=== PATIENT | male | born 1960 | race Caucasian/White ===

== ENCOUNTER 2021-08-30 13:22 | Inpatient (IN) ==
--- NOTE | 2021-08-30 13:52 | Emergency Department Note ---
History of Present Illness General Chief complaint: Fever Stated complaint: sob, fever, dizzy Time Seen by Provider: 08/30/21 13:38 Source: patient History of Present Illness Provider complaint: Shortness of breath Onset (ago): day(s) 5 Location: chest Pain Consistency: + intermittent Quality: + other (Wheezing) Exacerbated By: + other (Exertion) Associated symptoms: + cough, + fever/chills, + malaise and + shortness of breath; no chest pain, no headaches or no nausea/vomiting This is a 61-year-old male with a history of COPD presenting with flulike symptoms for the past 5 days with shortness of breath. The patient states that he had a gathering for [employer] and his became ill with flulike symptoms. She tested negative for COVID-19. The patient is vaccinated and has received a booster for COVID-19. He did develop symptoms 5 days ago including a productive cough with white sputum, body aches and chills. He is also short of breath which is worse when he tries to walk short distances. He was at his primary care provider's office today and was noted to have a O2 saturation of 82% on room air. He was sent here for further evaluation. He is not oxygen dependent at home. He does take a small dose of prednisone daily. He denies any chest discomfort or pain, fever, abdominal pain, vomiting, diarrhea, leg swelling or pain or urinary symptoms. Home Medications Medication Instructions Recorded Confirmed Type allopurinol 300 mg tablet 450 mg PO DAILY 08/30/21 08/30/21 History atorvastatin 40 mg tablet 40 mg PO DAILY 08/30/21 08/30/21 History prednisone 10 mg tablet 10 mg PO DAILY 08/30/21 08/30/21 History Allergies Allergy/AdvReac Type Severity Reaction Status Date / Time No Known Allergies Allergy Verified 08/30/21 14:22 Past Med/Surg History Medical History No pertinent family history No pertinent past medical history Surgical History No pertinent past surgical history Social History Smoking Status: Never smoker Tobacco Type: Smokeless Tobacco (Dip or Chew) Feels Safe at Home: Yes Review of Systems See HPI for pertinent positives & negatives. and A total of 10 systems reviewed and were otherwise negative Physical Exam Vital Signs Vital Signs - 24 hr 08/30/21 13:25 08/30/21 13:46 Temperature 36.7 C Temperature Source Temporal Artery Scan Pulse Rate 102 H Pulse Rate [Left Apical] 103 H Pulse Rhythm [Left Apical] Regular Pulse Strength [Left Apical] Normal Respiratory Rate 22 22 Respiratory Effort / Characteristics Non-Labored Spontaneous Non-Labored Spontaneous Respiratory Depth Normal Normal Respiratory Pattern Regular Blood Pressure 150/84 H Blood Pressure [Left Arm] 124/90 Blood Pressure Mean 106 Blood Pressure Mean [Left Arm] 101 Blood Pressure Position [Left Arm] Lying Pulse Oximetry 82 L 95 Oxygen Delivery Method Room Air Nasal Cannula Oxygen Flow Rate 2 Sepsis Recent Fever Within 48 Hours No Sepsis New/Unexplained Change in Mental Status No Sepsis Action Taken by Nursing No Action Required Constitutional: Vital signs reviewed. Hypoxemic. Eyes: Pupils are equal round reactive to light. Conjunctiva are noninjected. ENT: Pharynx is clear without erythema or exudate. Mucous membranes are moist. Neck supple without meningeal signs. Respiratory: Diffuse expiratory wheezing bilaterally. Breath sounds are equal bilaterally. Cardiovascular: Tachycardic. Regular rhythm. GI: Soft, nondistended and nontender. Bowel sounds are present. Musculoskeletal: No peripheral edema. No lower extremity tenderness. Integumentary: No cyanosis. or jaundice. Neurological: The patient is awake and alert. No focal deficits. Psychiatric: Normal affect. Not anxious appearing. Course Administered Medications Discontinued Medications Albuterol (Albut/Ipratrop 3mg/0.5mg Neb 3 Ml Vial) 3 ml NEB NOW STA; Protocol Stop: 08/30/21 14:00 Last Admin: 08/30/21 14:31 Dose: 3 ml Documented by: [id number] Albuterol (Albut/Ipratrop 3mg/0.5mg Neb 3 Ml Vial) 12 ml NEB ONE ONE; Protocol Stop: 08/30/21 17:01 Last Admin: 08/30/21 17:08 Dose: 12 ml Documented by: [id number] Ioversol (Optiray 320 125ml) 120 ml IV ONCE ONE Stop: 08/30/21 15:29 Last Admin: 08/30/21 15:28 Dose: 120 ml Documented by: [id number] Methylprednisolone (Methylprednisolone 125 Mg/2 Ml Vial) 125 mg IV NOW STA Stop: 08/30/21 14:00 Last Admin: 08/30/21 14:31 Dose: 125 mg Documented by: [id number] Critical Care Time Critical Care Time: Yes Total Critical Care Time: 35 I have personally spent approximately 35 minutes of critical care time in the direct management of this patient. This includes bedside care, interpretation of diagnostic studies, and testing, discussion with consultants, patient, and family members, and other required patient management activities. These minutes are in excess of all separately billable procedures. Medical Decision Making Differential Diagnosis COVID-19, sepsis, pneumonia, SIRS, influenza Medical Records Attestation: I reviewed the patient's medical records. I did perform a limited focused review of portions of the patient's old chart on the electronic medical record. The patient was seen in July 2020 for an abnormal D-dimer test. He had a CT angiogram and Dopplers of the lower extremities in the ED which showed no evidence of PE or DVT. Home Medications Current Medication List: was personally reviewed by me Laboratory Data Attestation: I reviewed the patient's lab results. Result diagrams: 08/30/21 13:45 08/30/21 13:45 Lab Results 08/30/21 08/30/21 08/30/21 Range/Units 13:45 13:45 14:35 WBC 10.46 (4.8-10.8) K/uL RBC 4.62 L (4.7-6.1) M/uL Hgb 13.6 L (14.0-18.0) g/dL Hct 42.7 (42-52) % MCV 92.4 (80-100) fL MCH 29.4 (25-34) pg MCHC 31.9 L (32-36) g/dL RDW Std Deviation 49.2 H (36.4-46.3) fL RDW Coeff of Dai 14.5 (11.5-14.5) % Plt Count 241 (130-400) K/uL MPV 10.1 (7.4-10.4) fL Immature Gran % (Auto) 0.4 % Neut % (Auto) 71.2 % Lymph % (Auto) 15.1 % [place] % (Auto) 12.8 % Eos % (Auto) 0.3 % Baso % (Auto) 0.2 % Neut # (Auto) 7.45 H (1.4-6.5) K/uL Lymph # (Auto) 1.58 (1.2-3.4) K/uL [place] # (Auto) 1.34 H (0.11-0.59) K/uL Eos # (Auto) 0.03 (0-0.5) K/uL Baso # (Auto) 0.02 (0-0.2) K/uL Immature Gran # (Auto) 0.04 H (0.00-0.02) K/uL PT (9.0-12.0) Seconds INR (0.9-1.1) APTT (21.0-31.0) Seconds PTT Ratio Sodium 132 L (136-145) mmol/L Potassium 3.5 (3.5-5.1) mmol/L Chloride 98 (98-107) mmol/L Carbon Dioxide 26 (21-32) mmol/L Anion Gap 8 (3-11) BUN 13 (6-23) mg/dl Creatinine 0.81 (0.6-1.4) mg/dl Est Cr Clr Drug Dosing Not Reportable Est GFR ( Amer) 109.6 ml/min Est GFR (Non-Af Amer) 94.6 ml/min BUN/Creatinine Ratio 16.0 (10-20) Glucose 97 (70-99(Fasting)) mg/dl Calcium 8.4 L (8.5-10.1) mg/dl Total Bilirubin 0.4 (0.2-1.0) mg/dl AST 27 (13-39) U/L ALT 35 (7-52) U/L Alkaline Phosphatase 105 H (34-104) U/L C-Reactive Protein 2.49 H (0-0.5) mg/dl Total Protein 7.1 (6.0-8.3) gm/dl Albumin 3.7 (3.4-5.0) gm/dl Globulin 3.4 (2.5-4.0) gm/dl Albumin/Globulin Ratio 1.1 (0.9-2) Procalcitonin (0-0.5) ng/ml Adenovirus (PCR) Not Detected (NotDetected) B. pertussis DNA (PCR) Not Detected (NotDetected) B.parapertussis DNA PCR Not Detected (NotDetected) C. pneumoniae DNA (PCR) Not Detected (NotDetected) Coronavirus OC43 (PCR) Not Detected (NotDetected) Coronavirus HKU1 (PCR) Not Detected (NotDetected) Coronavirus 229E (PCR) Not Detected (NotDetected) SARS-CoV-2 (PCR) Not Detected (NotDetected) Coronavirus NL63 (PCR) Not Detected (NotDetected) Human Metapneumovir PCR Not Detected (NotDetected) Influenza Type A (PCR) Not Detected (NotDetected) Influenza Type B (PCR) Not Detected (NotDetected) M. pneumoniae (PCR) Not Detected (NotDetected) Parainfluenza 1 (PCR) Not Detected (NotDetected) Parainfluenza 2 (PCR) Not Detected (NotDetected) Parainfluenza 3 (PCR) DETECTED A* (NotDetected) Parainfluenza 4 (PCR) Not Detected (NotDetected) RSV (PCR) Not Detected (NotDetected) Entero/Rhino (PCR) Not Detected (NotDetected) 08/30/21 08/30/21 Range/Units 14:55 14:57 WBC (4.8-10.8) K/uL RBC (4.7-6.1) M/uL Hgb (14.0-18.0) g/dL Hct (42-52) % MCV (80-100) fL MCH (25-34) pg MCHC (32-36) g/dL RDW Std Deviation (36.4-46.3) fL RDW Coeff of Dai (11.5-14.5) % Plt Count (130-400) K/uL MPV (7.4-10.4) fL Immature Gran % (Auto) % Neut % (Auto) % Lymph % (Auto) % [place] % (Auto) % Eos % (Auto) % Baso % (Auto) % Neut # (Auto) (1.4-6.5) K/uL Lymph # (Auto) (1.2-3.4) K/uL [place] # (Auto) (0.11-0.59) K/uL Eos # (Auto) (0-0.5) K/uL Baso # (Auto) (0-0.2) K/uL Immature Gran # (Auto) (0.00-0.02) K/uL PT 10.9 (9.0-12.0) Seconds INR 1.0 (0.9-1.1) APTT 26.1 (21.0-31.0) Seconds PTT Ratio 0.9 Sodium (136-145) mmol/L Potassium (3.5-5.1) mmol/L Chloride (98-107) mmol/L Carbon Dioxide (21-32) mmol/L Anion Gap (3-11) BUN (6-23) mg/dl Creatinine (0.6-1.4) mg/dl Est Cr Clr Drug Dosing Est GFR ( Amer) ml/min Est GFR (Non-Af Amer) ml/min BUN/Creatinine Ratio (10-20) Glucose (70-99(Fasting)) mg/dl Calcium (8.5-10.1) mg/dl Total Bilirubin (0.2-1.0) mg/dl AST (13-39) U/L ALT (7-52) U/L Alkaline Phosphatase (34-104) U/L C-Reactive Protein (0-0.5) mg/dl Total Protein (6.0-8.3) gm/dl Albumin (3.4-5.0) gm/dl Globulin (2.5-4.0) gm/dl Albumin/Globulin Ratio (0.9-2) Procalcitonin 0.10 (0-0.5) ng/ml Adenovirus (PCR) (NotDetected) B. pertussis DNA (PCR) (NotDetected) B.parapertussis DNA PCR (NotDetected) C. pneumoniae DNA (PCR) (NotDetected) Coronavirus OC43 (PCR) (NotDetected) Coronavirus HKU1 (PCR) (NotDetected) Coronavirus 229E (PCR) (NotDetected) SARS-CoV-2 (PCR) (NotDetected) Coronavirus NL63 (PCR) (NotDetected) Human Metapneumovir PCR (NotDetected) Influenza Type A (PCR) (NotDetected) Influenza Type B (PCR) (NotDetected) M. pneumoniae (PCR) (NotDetected) Parainfluenza 1 (PCR) (NotDetected) Parainfluenza 2 (PCR) (NotDetected) Parainfluenza 3 (PCR) (NotDetected) Parainfluenza 4 (PCR) (NotDetected) RSV (PCR) (NotDetected) Entero/Rhino (PCR) (NotDetected) Imaging Data Radiologist's Impression: Chest X-Ray 08/30/21 13:56 SINGLE VIEW CHEST CLINICAL HISTORY: Fever FINDINGS: An AP, portable, upright chest radiograph is correlated with chest CT dated 08/03/2020. The heart is enlarged noting atherosclerotic calcification of the thoracic aorta. Mild emphysema and chronic interstitial thickening is da lar to previous. Airspace opacities are present at both lung bases. Plate like atelectasis is noted at the left lung base. No large pleural effusion or pneumothorax is seen. The skeletal structures are osteopenic. The bony thorax is grossly intact. IMPRESSION: 1. Cardiomegaly mild emphysema without radiographic evidence of congestive failure. 2. Bibasilar airspace opacities may represent scarring/atelectasis. Correlate clinically for evidence of a superimposed infectious/inflammatory pneumonitis ACT 112: Negative or not required by law. Electronically signed by: Chuck Brady M.D. 08/30/2021 2:35 PM Chest CTA 08/30/21 14:37 CT angio chest PE protocol CT DOSE: 975.77 mGy.cm HISTORY: 61 years-old Male with hypoxic eval for PE. Acute hypoxia TECHNIQUE: Multiple CTA images of the chest were obtained after the intravenous administration of 120 ml Optiray. Coronal and sagittal MIPS were obtained from the axial data set and were submitted for review. All measurements were obtained according to NASCET criteria. A dose lowering technique was utilized adhering to the principles of ALARA. COMPARISON: 08/03/2020 FINDINGS: CTA: Mild cardiomegaly. Mediastinal lipomatosis. Extensive coronary artery calcifications. Atherosclerosis of the thoracic aorta without aneurysm. Patency of the imaged great vessels. Unremarkable pulmonary artery. The segmental and subsegmental pulmonary arterial branches are not well opacified and therefore difficult to evaluate. Reflux of contrast into the IVC and hepatic veins. CT CHEST: No thyroid nodule. Mildly enlarged subcarinal lymph nodes measure up to 10 mm. Gynecomastia. No pneumothorax, bronchial wall thickening is noted with subsegmental dependent bibasilar predominant atelectasis. Mild pulmonary emphysema. Scattered subsegmental tree-in-bud and nodular consolidative op acities are noted throughout the right lung, most pronounced in the right upper and middle lobes. Hepatomegaly with hepatic steatosis. Unremarkable soft tissues. Degenerative changes of the shoulders and spine. Healed chronic anterior right-sided rib fractures. IMPRESSION: 1. Cardiomegaly without pulmonary emboli identified. 2. Bronchial wall thickening suggestive of bronchitis. There are associated tree-in-bud nodules with nodular patchy consolidative opacities throughout the right lung compatible with an infectious or inflammatory pneumonitis/bronchiolitis. 3. Mild mediastinal adenopathy, likely reactive. 4. Hepatic steatosis. ACT 112: Negative or not required by law. The above report was generated using voice recognition software. It may contain grammatical, syntax or spelling errors. Electronically signed by: Angelo Iqbal M.D. 08/30/2021 3:54 PM ECG Data Attestation: I personally reviewed and interpreted this ECG as follows: Indication: + SOB/dyspnea Rate (beats per minute): 98 ECG [place]: + Normal ECG ST segments: no ST elevation ECG Findings: + PACs; no PVCs Comparison ECG Date: from (August 03, 2020) Change: no significant change MDM Narrative I did evaluate the patient as noted above. The patient is presenting with shortness of breath and flulike symptoms for 5 days. He is hypoxemic here and requires oxygen via nasal cannula. His O2 sat duration goes up to 95% on 2 L. He is not oxygen dependent at home. I did treat him with a hour-long continuous DuoNeb. IV access was established. He was given Solu-Medrol IV. I did place an order for continuous cardiac monitoring. The monitor showed sinus tachycardia at a rate of 105 bpm. I did order and personally review the patient's 12-lead EKG as described above. He has no acute ischemic changes. I did order and personally reviewed the images of the patient's chest x-ray as described above. Chest x-ray does not show a pneumonia. I did order and review the patient's blood work as noted in the electronic medical record. CBC demonstrates a white count of 10.4 with a left shift. Hemoglobin is 13 and platelets are 241. CMP is unremarkable other than a sodium of 132. C-reactive protein is elevated at 2.49. Due to his tachycardia and hypoxemia without significant findings on chest x-ray, I did order a CT angiogram of the chest. I did review the images myself as well as the radiology report as described above. There is no evidence of pulmonary embolism. He has what looks like nodular patchy consolidative opacities throughout the right lung compatible with pneumonitis/bronchiolitis. On reevaluation the patient's wheezing is improved. He was informed of his test results. The case was discussed with the hospi talist and clinical case manager. Resident Physician Supervision Note: I did perform an independent evaluation and examination of this patient as described. I also saw this patient in conjunction with the resident, Dr. Arnold, and guided management for the patient. Impression & Plan Hypoxemia, COPD with acute exacerbation, Hyponatremia, Parainfluenza virus bronchitis Discharge Plan Visit Data Chief Complaint: Fever Stated Complaint: sob, fever, dizzy ED Provider: Yohannes Jose ED Midlevel Provider: Kavon Arnold Discharge Problem: Hypoxemia, COPD with acute exacerbation, Hyponatremia, Parainfluenza virus bronchitis Patient Disposition: Being Evaluated by Hospitalist Forms Stand Alone Forms: My [facility] Prescriptions Prescriptions: No Action atorvastatin 40 mg tablet 40 mg PO DAILY RF: 0 prednisone 10 mg tablet 10 mg PO DAILY RF: 0 allopurinol 300 mg tablet 450 mg PO DAILY RF: 0 Referrals Referrals: Christa Edmond DO [Primary Care Provider] -
[2021-08-30] MEDS ORDERED: methylPREDNISolone 125 MG/2 ML VIAL IV STA (13:59)
[2021-08-30] MEDS ORDERED: ALBUT/IPRATROP 3MG/0.5MG NEB 3 ML VIAL NEB STA (13:59)
[2021-08-30 14:26] LABS: Albumin Level 3.7 gm/dl (3.4-5.0); Anion Gap 8 (3-11); Bilirubin,Total 0.4 mg/dl (0.2-1.0); Calcium 8.4 mg/dl (8.5-10.1); Carbon Dioxide 26 mmol/L (21-32); Chloride 98 mmol/L (98-107); Potassium 3.5 mmol/L (3.5-5.1); Sodium 132 mmol/L (136-145)
[2021-08-30 14:31] LABS: Alanine Aminotransferase 35 U/L (7-52); Albumin Globulin Ratio 1.1 (0.9-2); Alkaline Phosphatase 105 U/L (34-104); Aspartate Aminotransferase 27 U/L (13-39); Basophils # (auto) 0.02 K/uL (0-0.2); Basophils % (auto) 0.2 %; Blood Urea Nitrogen 13 mg/dl (6-23); C Reactive Protein 2.49 mg/dl (0-0.5); Eosinophils # (auto) 0.03 K/uL (0-0.5); Eosinophils % (auto) 0.3 %; Est GFR (African American) 109.6 ml/min; Est GFR (Non-African American) 94.6 ml/min; Globulin 3.4 gm/dl (2.5-4.0); Glucose 97 mg/dl (70-99(Fasting)); Hematocrit (blood only) 42.7 % (42-52); Hemoglobin 13.6 g/dL (14.0-18.0); Immature Granulocytes # (auto) 0.04 K/uL (0.00-0.02); Immature Granulocytes % (auto) 0.4 %; Lymphocytes # (auto) 1.58 K/uL (1.2-3.4); Lymphocytes % (auto) 15.1 %; Mean Corpuscular Hemoglobin 29.4 pg (25-34); Mean Corpuscular Hgb Conc 31.9 g/dL (32-36); Mean Corpuscular Volume 92.4 fL (80-100); Mean Platelet Volume 10.1 fL (7.4-10.4); Monocytes # (auto) 1.34 K/uL (0.11-0.59); Monocytes % (auto) 12.8 %; Neutrophils # (auto) 7.45 K/uL (1.4-6.5); Neutrophils % (auto) 71.2 %; Platelet Count 241 K/uL (130-400); RDW Coefficient of Variation 14.5 % (11.5-14.5); RDW Standard Deviation 49.2 fL (36.4-46.3); Red Blood Count 4.62 M/uL (4.7-6.1); Total Protein 7.1 gm/dl (6.0-8.3); White Blood Count 10.46 K/uL (4.8-10.8)
--- NOTE | 2021-08-30 14:37 | XRay Report ---
SINGLE VIEW CHEST CLINICAL HISTORY: Fever FINDINGS: An AP, portable, upright chest radiograph is correlated with chest CT dated 08/03/2020. The heart is enlarged noting atherosclerotic calcification of the thoracic aorta. 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 Airspace opacities are present at both lung bases . Plate like atelectasis is noted at the left lung base. No large pleural effusion or pneumothorax is seen. The skeletal structures are osteopenic. The bony thorax is grossly intact. IMPRESSION: 1. Cardiomegaly mild emphysema without radiographic evidence of congestive failure. 2. Bibasilar airspace opacities may represent scarring/atelectasis. Correlate clinically for evidence of a superimposed infectious/inflammatory pneumonitis ACT 112: Negative or not required by law. Electronically signed by: Chuck Brady M.D. 08/30/2021 2:35 PM
[2021-08-30] MEDS ORDERED: OPTIRAY 320 125ml IV ONE (15:28)
[2021-08-30 15:29] LABS: Partial Thromboplastin Ratio 0.9; Partial Thromboplastin Time 26.1 Seconds (21.0-31.0); Prothrombin Time 10.9 Seconds (9.0-12.0)
--- NOTE | 2021-08-30 15:38 | Communication Note ---
Date of Service: August 30, 2021 I participated in the care and plan for this patient. For plan and disposition please see attending provider's note. Resident Activity Tracking Resident Involvement: Resident Care Provided Care Provided: Adult ED
[2021-08-30 15:52] LABS: Adenovirus PCR Not Detected (NotDetected); Bordetella parapertussis PCR Not Detected (NotDetected); Bordetella pertussis PCR Not Detected (NotDetected); Chlamydia pneumoniae PCR Not Detected (NotDetected); Coronavirus 229E PCR Not Detected (NotDetected); Coronavirus CoV-2 (COVID19)PCR Not Detected (NotDetected); Coronavirus HKU1 PCR Not Detected (NotDetected); Coronavirus NL63 PCR Not Detected (NotDetected); Coronavirus OC43PCR Not Detected (NotDetected); Human Metapneumovirus PCR Not Detected (NotDetected); Influenza A PCR Not Detected (NotDetected); Influenza B PCR Not Detected (NotDetected); Mycoplasma pneumoniae PCR Not Detected (NotDetected); Parainfluenza Virus 1 PCR Not Detected (NotDetected); Parainfluenza Virus 2 PCR Not Detected (NotDetected); Parainfluenza Virus 4 PCR Not Detected (NotDetected); Respiratory Syncytial VirusPCR Not Detected (NotDetected); Rhinovirus/Enterovirus PCR Not Detected (NotDetected)
--- NOTE | 2021-08-30 15:56 | CT Scan Report ---
CT angio chest PE protocol CT DOSE: 975.77 mGy.cm HISTORY: 61 years-old Male with hypoxic eval for PE. Acute hypoxia TECHNIQUE: Multiple CTA images of the chest were obtained after the intravenous administration of 120 ml Optiray. Coronal and sagittal MIPS were obtained from the axial data set and were submitted for review. All measurements were obtained according to NASCET criteria. A dose lowering technique was u tilized adhering to the principles of ALARA. COMPARISON: 08/03/2020 FINDINGS: CTA: Mild cardiomegaly. Mediastinal lipomatosis. Extensive coronary artery calcifications. Atherosclerosis of the thoracic aorta without aneurysm. Patency of the imaged great vessels. Unremarkable pulmonary artery. The segmental and subsegmental pulmonary arterial branches are not well opacified and therefo re difficult to evaluate. Reflux of contrast into the IVC and hepatic veins. CT CHEST: No thyroid nodule. Mildly enlarged subcarinal lymph nodes measure up to 10 mm. Gynecomastia. No pneum othorax, bronchial wall thickening is noted with subsegmental dependent bibasilar predominant atelect asis. Mild pulmonary emphysema. Scattered subsegmental tree-in-bud and nodular consolidative opacitie s are noted throughout the right lung, most pronounced in the right upper and middle lobes. Hepatomegaly with hepatic steatosis. Unremarkable soft tissues. Degenerative changes of the shoulders and spine. Healed chronic anterior right-sided rib fractures. IMPRESSION: 1. Cardiomegaly without pulmonary emboli identified. 2. Bronchial wall thickening suggestive of bronchitis. There are associated tree-in-bud nodules with nodular patchy consolidative opacities throughout the right lung compatible with an infectious or inf lammatory pneumonitis/bronchiolitis. 3. Mild mediastinal adenopathy, likely reactive. 4. Hepatic steatosis. ACT 112: Negative or not required by law. The above report was generated using voice recognition software. It may contain grammatical, syntax o r spelling errors. Electronically signed by: Angelo Iqbal M.D. 08/30/2021 3:54 PM
[2021-08-30 16:08] LABS: Parainfluenza Virus 3 PCR DETECTED (NotDetected)
[2021-08-30] MEDS ORDERED: ALBUT/IPRATROP 3MG/0.5MG NEB 3 ML VIAL NEB ONE (17:00)
--- NOTE | 2021-08-30 17:10 | History & Physical Report ---
Date of Service August 30, 2021 Assessment & Plan (1) Acute respiratory failure with hypoxia: (2) COPD with acute exacerbation: (3) Parainfluenza virus bronchitis: (4) Bronchiolitis: (5) Hyponatremia: (6) Alcohol abuse: Plan: This is a 61-year-old male who has significant past medical history diet- controlled T2DM, obstructive lung disease, history of COVID, hyperlipidemia, alcohol abuse, rheumatoid arthritis, elevated ferritin requiring therapeutic phlebotomy, lumbar spinal stenosis, AAA who presents to ED after follow-up PCP secondary to cough x5 days and hypoxia. Chest CTA: Bronchial wall thickening suggestive of bronchitis. There are associated tree-in-bud nodules with nodular patchy consolidative opacities throughout the right lung compatible with an infectious or inflammatory pneumonitis/bronchiolitis. Negative for PE. Acute hypoxic respiratory failure COPD exacerbation Acute bronchiolitis secondary to parainfluenza Admit to PCU Continue oxygen supplementation, during my eval in ER patient was requiring 6 L on OxiMax Suspect mucous plugging may be playing a component due to excessive mucus production and increasing oxygen requirements IV Solu-Medrol 40 mg 3 times daily IV Levaquin 750 mg daily Aggressive pulmonary toilet with flutter valve, incentive spirometer, chest PT Mucinex twice daily, Tessalon Perles as needed pt does not take any maintenance inhalers due to cost in the past T2DM Last A1c 6.8 on May/2021 Obtain A1c in a.m. BSG 97 No coverage for now, monitor FBS while on steroids Hyponatremia na 132 suspect alcohol playing component check urine osm, urine na, serum osm repeat in a.m. Alcohol abuse drinks 5-6 beers daily admits to "shakes" when he goes w/o awss protocol prn IV ativan daily thiamine, folic acid HLD continue statin Gout continue allopurinol Hx of RA follows Dr. Adan currently not receiving treatment Elevated Ferritin previously followed Dr. Dorsey from [place] therapeutic phlebotomy DVT ppx: SQ Lovenox Dispo: PCU FULL CODE PCP: Feli Pt was seen and examined in collaboration with Dr. Martinez, please see addendum History of Present Illness Chief Complaint: Cough x5 days. Primary Care Provider: Christa Edmond, DO This is a 61-year-old male who has significant past medical history diet- controlled T2DM, obstructive lung disease, history of COVID, hyperlipidemia, alcohol abuse, rheumatoid arthritis, elevated ferritin requiring therapeutic phlebotomy, lumbar spinal stenosis, AAA who presents to ED after follow-up PCP secondary to cough x5 days and hypoxia. Symptoms started approximately 5 days ago. He complains of a copious amount brumfield sputum. He further complains of wheezing and dyspnea on exertion. He also complains of occasional lightheadedness. Today we checked his oxygen it was in the low 80s on room air. He has positive sick contact with his . She also has similar symptoms. He has prior past medical history of tobacco abuse. He smoked for roughly 40 years at half a pack a day. He has not smoked for many years. He does have history of COPD, but has not required hospitalization for this. He will require hospitalization for COVID-pneumonia. He denies any documented fever, chills, sweats, dizziness, syncope, chest pain, palpitations, hemoptysis, sinus congestion, sore throat, nausea, vomiting, abdominal pain, change in bowel or urinary habits. His appetite has been stable. He has not tried anything [id number] at home. He did see his PCP today who recommended ER evaluation due to hypoxia. Allergies Allergy/AdvReac Type Severity Reaction Status Date / Time No Known Allergies Allergy Verified 08/30/21 14:22 Home Medications Medication Instructions Recorded Confirmed Type allopurinol 300 mg tablet 450 mg PO DAILY 08/30/21 08/30/21 History atorvastatin 40 mg tablet 40 mg PO DAILY 08/30/21 08/30/21 History prednisone 10 mg tablet 10 mg PO DAILY 08/30/21 08/30/21 History Past Med/Surg History Medical History (Updated 08/30/21 @ 17:43 by Laura Rodriguez PA-C) AAA (abdominal aortic aneurysm) Alcohol abuse COPD (chronic obstructive pulmonary disease) Elevated ferritin HLD (hyperlipidemia) Lumbar spinal stenosis Personal history of COVID-19 Rheumatoid arthritis T2DM (type 2 diabetes mellitus) Surgical History (Updated 08/30/21 @ 17:34 by Laura Rodriguez PA-C) History of right hip replacement History of tonsillectomy and adenoidectomy History of uvulectomy Family History (Updated 08/30/21 @ 17:35 by Laura Rodriguez PA-C) Mother COPD (chronic obstructive pulmonary disease) Social History (Updated 08/30/21 @ 17:35 by Laura Rodriguez PA-C) Smoking Status: Former smoker Tobacco Type: Cigarettes and Smokeless Tobacco (Dip or Chew) packs per day: 0.5; Years Smoked: 40; Second Hand Exposure: Yes; Do You Dip or Chew Tobacco: Yes; Tobacco Cessation Education Requested by Patient: No Hx Alcohol Use: Yes Alcohol type: beer Alcohol Intake Frequency Comment: 5-6 budweiser daily Hx Substance Use: No Preferred Language: Guatemalan Communication Ability: Effective Mobile Application Architect Required: No Beliefs That Will Affect Care: None marital status: Current Living Situation: Spouse Other Information That Helps Us Care for You: No Feels Safe at Home: Yes Safety Concerns: Feels Safe At This Time Assistive Devices: Cane Assistive Devices Comment: partial dentures Review of Systems Review of Systems: All systems reviewed & are unremarkable except as noted in HPI & below Physical Exam Physical Exam: Constitutional: WD/WN, vitals as above, NAD, sitting up at bedside, pleasant, conversing easily Head: Normocephalic, Atraumatic Eyes: PERRL, conjunctivae normal, anicteric sclerae ENMT: external ear and nose normal, oropharynx normal Neck: trachea midline, no thyromegaly normal visual inspection Respiratory: Oxymask in place 6L, 91%, normal respiratory effort, lungs clear to auscultation with decreased BS RLL, faint exp wheeze, no rales/rhonchi. Normal insp/exp effort, no accessory muscle use Cardiovascular: RRR, no murmur, no edema Vessels: no JVD or carotid bruit Chest: normal inspection of chest Abdomen: protuberant, obese, abd, normal bowel sounds, soft, nontender, no hepatosplenomegaly Musculoskeletal: no cyanosis or clubbing, extremities motor strength 5/5 Skin: no rashes, warm and dry normal turgor Neurologic: PERRL, EOMI, accommodation nl, no face palsy, no dysarthria CN's II-XI intact bilaterally and moves all extremities Psychiatric: A+Ox3, euthymic affect Lymphatic: no cervical or axillary lymphadenopathy : deferred Results & Data Results & Data ([facility]) Vital Signs (Past 12 Hours) Vital Signs Temp Pulse Pulse Resp BP BP Pulse Ox 08/30/21 13:46 103 H 22 124/90 95 08/30/21 13:25 36.7 C 102 H 22 150/84 H 82 L Diagnostic Findings Chest X-Ray 08/30/21 13:56 SINGLE VIEW CHEST CLINICAL HISTORY: Fever FINDINGS: An AP, portable, upright chest radiograph is correlated with chest CT dated 08/03/2020. The heart is enlarged noting atherosclerotic calcification of the thoracic aorta. Mild emphysema and chronic interstitial thickening is similar to previous. Airspace opacities are present at both lung bases. Plate like atelectasis is noted at the left lung base. No large pleural effusion or pneumothorax is seen. The skeletal structures are osteopenic. The bony thorax is grossly intact. IMPRESSION: 1. Cardiomegaly mild emphysema without radiographic evidence of congestive failure. 2. Bibasilar airspace opacities may represent scarring/atelectasis. Correlate clinically for evidence of a superimposed infectious/inflammatory pneumonitis ACT 112: Negative or not required by law. Electronically signed by: Chuck Brady M.D. 08/30/2021 2:35 PM Chest CTA 08/30/21 14:37 CT angio chest PE protocol CT DOSE: 975.77 mGy.cm HISTORY: 61 years-old Male with hypoxic eval for PE. Acute hypoxia TECHNIQUE: Multiple CTA images of the chest were obtained after the intravenous administration of 120 ml Optiray. Coronal and sagittal MIPS were obtained from the axial data set and were submitted for review. All measurements were obtained according to NASCET criteria. A dose lowering technique was utilized adhering to the principles of ALARA. COMPARISON: 08/03/2020 FINDINGS: CTA: Mild cardiomegaly. Mediastinal lipomatosis. Extensive coronary artery calcifications. Atherosclerosis of the thoracic aorta without aneurysm. Patency of the imaged great vessels. Unremarkable pulmonary artery. The segmental and subsegmental pulmonary arterial branches are not well opacified and therefore difficult to evaluate. Reflux of contrast into the IVC and hepatic veins. CT CHEST: No thyroid nodule. Mildly enlarged subcarinal lymph nodes measure up to 10 mm. Gynecomastia. No pneumothorax, bronchial wall thickening is noted with subsegmental dependent bibasilar predominant atelectasis. Mild pulmonary emphysema. Scattered subsegmental tree-in-bud and nodular consolidative opacities are noted throughout the right lung, most pronounced in the right upper and middle lobes. Hepatomegaly with hepatic steatosis. Unremarkable soft tissues. Degenerative changes of the shoulders and spine. Healed chronic anterior right-sided rib fractures. IMPRESSION: 1. Cardiomegaly without pulmonary emboli identified. 2. Bronchial wall thickening suggestive of bronchitis. There are associated tree-in-bud nodules with nodular patchy consolidative opacities throughout the right lung compatible with an infectious or inflammatory pneumonitis/bronchiolitis. 3. Mild mediastinal adenopathy, likely reactive. 4. Hepatic steatosis. ACT 112: Negative or not required by law. The above report was generated using voice recognition software. It may contain grammatical, syntax or spelling errors. Electronically signed by: Angelo Iqbal M.D. 08/30/2021 3:54 PM Medications Administered Medication List Discontinued Medications Albuterol (Albut/Ipratrop 3mg/0.5mg Neb 3 Ml Vial) 3 ml NEB NOW STA; Protocol Stop: 08/30/21 14:00 Last Admin: 08/30/21 14:31 Dose: 3 ml Documented by: [id number] Albuterol (Albut/Ipratrop 3mg/0.5mg Neb 3 Ml Vial) 12 ml NEB ONE ONE; Protocol Stop: 08/30/21 17:01 Last Admin: 08/30/21 17:08 Dose: 12 ml Documented by: [id number] Ioversol (Optiray 320 125ml) 120 ml IV ONCE ONE Stop: 08/30/21 15:29 Last Admin: 08/30/21 15:28 Dose: 120 ml Documented by: [id number] Methylprednisolone (Methylprednisolone 125 Mg/2 Ml Vial) 125 mg IV NOW STA Stop: 08/30/21 14:00 Last Admin: 08/30/21 14:31 Dose: 125 mg Documented by: [id number] ECG Rate (beats per minute): 98 Rhythm: normal sinus Findings: + PAC Additional Comments: QTC 454ms COVID-19 Results Results COVID-19 Adm Lab Results: RBC 4.36 M/uL (4.7-6.1) L 08/31/21 WBC 9.66 K/uL (4.8-10.8) 08/31/21 Hgb 13.0 g/dL (14.0-18.0) L 08/31/21 Hct 40.5 % (42-52) L 08/31/21 Plt Count 248 K/uL (130-400) 08/31/21 Neutrophils (%) (Auto) 84.2 % 08/31/21 Lymphocytes (%) (Auto) 8.7 % 08/31/21 Monocytes # (Auto) 0.65 K/uL (0.11-0.59) H 08/31/21 Eosinophils # (Auto) 0.00 K/uL (0-0.5) 08/31/21 Immature Granulocyte % (Auto) 0.3 % 08/31/21 Neutrophils # (Auto) 8.13 K/uL (1.4-6.5) H 08/31/21 Lymphocytes # (Auto) 0.84 K/uL (1.2-3.4) L 08/31/21 Monocytes # (Auto) 0.65 K/uL (0.11-0.59) H 08/31/21 Eosinophils # (Auto) 0.00 K/uL (0-0.5) 08/31/21 Basophils # (Auto) 0.01 K/uL (0-0.2) 08/31/21 Immature Granulocyte # (Auto) 0.03 K/uL (0.00-0.02) H 08/31/21 Na 136 mmol/L (136-145) 08/31/21 K 3.9 mmol/L (3.5-5.1) 08/31/21 Cl 99 mmol/L (98-107) 08/31/21 CO2 30 mmol/L (21-32) 08/31/21 Anion Gap 7 (3-11) 08/31/21 BUN 15 mg/dl (6-23) 08/31/21 Creatinine 0.79 mg/dl (0.6-1.4) 08/31/21 BUN/Creatinine Ratio 19.0 (10-20) 08/31/21 Glucose Level 140 mg/dl (70-99(Fasting)) H 08/31/21 Ca 9.0 mg/dl (8.5-10.1) 08/31/21 Total Bilirubin 0.5 mg/dl (0.2-1.0) 08/31/21 AST/SGOT 16 U/L (13-39) 08/31/21 ALT/SGPT 30 U/L (7-52) 08/31/21 Alkaline Phosphatase 100 U/L (34-104) 08/31/21 Total Protein 7.3 gm/dl (6.0-8.3) 08/31/21 Albumin 3.8 gm/dl (3.4-5.0) 08/31/21 Globulin 3.5 gm/dl (2.5-4.0) 08/31/21 Albumin/Globulin Ratio 1.1 (0.9-2) 08/31/21 CRP 2.49 mg/dl (0-0.5) H 08/30/21 Procalcitonin 0.10 ng/ml (0-0.5) 08/30/21 PTT 26.1 Seconds (21.0-31.0) 08/30/21 INR 1.0 (0.9-1.1) 08/30/21 Adenovirus (PCR) Not Detected (NotDetected) 08/30/21 B. parapertussis DNA (PCR) Not Detected (NotDetected) 08/30/21 B. pertussis DNA (PCR) Not Detected (NotDetected) 08/30/21 C. pneumoniae DNA (PCR) Not Detected (NotDetected) 08/30/21 Coronavirus Type OC43 (PCR) Not Detected (NotDetected) 08/30/21 Coronavirus Type HKU1 (PCR) Not Detected (NotDetected) 08/30/21 Coronavirus Type 229E (PCR) Not Detected (NotDetected) 08/30/21 COVID-19 PCR Not Detected (NotDetected) 08/30/21 Coronavirus Type NL63 (PCR) Not Detected (NotDetected) 08/30/21 Human Metapneumovirus (PCR) Not Detected (NotDetected) 08/30/21 Influenza Virus Type A (PCR) Not Detected (NotDetected) 08/30/21 Influenza Virus Type B (PCR) Not Detected (NotDetected) 08/30/21 M. pneumoniae (PCR) Not Detected (NotDetected) 08/30/21 Parainfluenza Type 1 (PCR) Not Detected (NotDetected) 08/30/21 Parainfluenza Type 2 (PCR) Not Detected (NotDetected) 08/30/21 Parainfluenza Type 3 (PCR) DETECTED (NotDetected) A* 08/30/21 Parainfluenza Type 4 (PCR) Not Detected (NotDetected) 08/30/21 RSV (PCR) Not Detected (NotDetected) 08/30/21 Enterovirus/Rhinovirus (PCR) Not Detected (NotDetected) 08/30/21 Chest X-Ray 08/30/21 Code Status & VTE Plan Code Status FULL CODE VTE Prophylaxis Plan VTE Prophylaxis will be ordered: Yes Supervising Physician Co-Signing Physician Notes Pt was seen and examined. Agreed with Laura BALDWIN exam, assessment and plan. 61-year-old male with significant past medical history T2DM, obstructive lung disease, history of COVID, hyperlipidemia, alcohol abuse, rheumatoid arthritis, lumbar spinal stenosis, AAA who presents to ED worsening cough and SOB. He said that symptoms started about 5 days where he has been having increased sputum production. He said that he has been wheezing associated SOB with minimal exertion. He said his is sick with URI. Pt said that he checked his oxygen level today and was found to be in the 80's. Denies any chest pain, palpitation, dizziness, fever and chills. CXR on admission showed cardiomegaly mild emphysema without radiographic evidence of congestive failure. Bibasilar airspace opacities may represent scarring/atelectasis. CTA chest showed bronchial wall thickening suggestive of bronchitis. There are associated tree-in-bud nodules with nodular patchy consolidative opacities throughout the right lung compatible with an infectious or inflammatory pneumonitis/bronchiolitis. Mild mediastinal adenopathy, likely reactive. Received IV solumedrol in the ER. will continue IV Solu-Medrol 40 mg 3 times daily and will add IV Levaquin 750 mg daily. Aggressive pulmonary toilet with flutter valve, incentive spirometer, chest PT. Mucinex twice daily, Tessalon Perles as needed. Will monitor closely. MD Michelle
[2021-08-30] MEDS ORDERED: ATIVAN IV ALCOHOL WITHDRAWL IV PRN (20:49)
[2021-08-30] MEDS ORDERED: ALUMINUM/MAGNESIUM SUSP 30 ML UDC PO PRN (20:49)
[2021-08-30] MEDS ORDERED: BENZONATATE 100 MG CAPSULE PO PRN (20:49)
[2021-08-30] MEDS ORDERED: MAGNESIUM HYDROXIDE SUSP 30 ML UDC PO PRN (20:49)
[2021-08-30] MEDS ORDERED: POLYETHYLENE (MIRALAX) 17 GM PACK PO PRN (20:49)
[2021-08-30] MEDS ORDERED: LORazepam 2 MG/1 ML VIAL IV PRN ×3 (20:49)
[2021-08-30] MEDS ORDERED: ONDANSETRON INJ 2 MG/ML 2 ML VIAL IV PRN (20:49)
[2021-08-30] MEDS ORDERED: ACETAMINOPHEN 325 MG TAB PO PRN (20:49)
[2021-08-30] MEDS ORDERED: ALBUT/IPRATROP 3MG/0.5MG NEB 3 ML VIAL ONE (21:04)
[2021-08-30] MEDS: ALBUT/IPRATROP 3MG/0.5MG NEB 3 ML VIAL NEB SCH ×2 (21:14→23:13)
[2021-08-30] MEDS: levoFLOXacin/D5W 750 MG/150 ML BAG IV SCH (21:55)
[2021-08-30] MEDS: ENOXAPARIN INJ 40 MG/0.4 ML SYR SQ SCH (22:00)
[2021-08-30] MEDS: FOLIC ACID 1 MG TAB PO SCH (22:01)
[2021-08-30] MEDS: guaiFENesin 600 MG TABCR PO SCH (22:02)
[2021-08-30] MEDS: THIAMINE HCL 100 MG TAB PO SCH (22:02)
[2021-08-30] MEDS ORDERED: CARBOHYDRATES FOR HYPOGLYCEMIA PO PRN (22:45)
[2021-08-30] MEDS ORDERED: GLUCOSE 40% GEL 15 GM TUBE PO PRN (22:45)
[2021-08-30] MEDS ORDERED: GLUCAGON FOR INJ 1 MG VIAL IM PRN (22:45)
[2021-08-30] MEDS ORDERED: DEXTROSE 50% 50 ML SYRINGE IV PRN (22:45)
[2021-08-30] MEDS ORDERED: GLUCOSE 10 TABS/TUBE PO PRN (22:45)
[2021-08-31] MEDS: ALBUT/IPRATROP 3MG/0.5MG NEB 3 ML VIAL NEB SCH ×4 (03:29→14:26)
[2021-08-31] MEDS: methylPREDNISolone 40 MG in SYRINGE 0 ML IV SCH ×3 (05:43→21:45)
[2021-08-31 06:33] LABS: Basophils # (auto) 0.01 K/uL (0-0.2); Basophils % (auto) 0.1 %; Hematocrit (blood only) 40.5 % (42-52); Immature Granulocytes # (auto) 0.03 K/uL (0.00-0.02); Immature Granulocytes % (auto) 0.3 %; Lymphocytes # (auto) 0.84 K/uL (1.2-3.4); Lymphocytes % (auto) 8.7 %; Mean Corpuscular Hemoglobin 29.8 pg (25-34); Mean Corpuscular Hgb Conc 32.1 g/dL (32-36); Mean Corpuscular Volume 92.9 fL (80-100); Monocytes # (auto) 0.65 K/uL (0.11-0.59); Monocytes % (auto) 6.7 %; Neutrophils # (auto) 8.13 K/uL (1.4-6.5); Neutrophils % (auto) 84.2 %; Platelet Count 248 K/uL (130-400); RDW Coefficient of Variation 14.5 % (11.5-14.5); RDW Standard Deviation 49.5 fL (36.4-46.3); Red Blood Count 4.36 M/uL (4.7-6.1); White Blood Count 9.66 K/uL (4.8-10.8)
[2021-08-31 07:06] LABS: Alanine Aminotransferase 30 U/L (7-52); Albumin Globulin Ratio 1.1 (0.9-2); Albumin Level 3.8 gm/dl (3.4-5.0); Alkaline Phosphatase 100 U/L (34-104); Anion Gap 7 (3-11); Bilirubin,Total 0.5 mg/dl (0.2-1.0); Blood Urea Nitrogen 15 mg/dl (6-23); Carbon Dioxide 30 mmol/L (21-32); Chloride 99 mmol/L (98-107); Creatinine Clr Calc Pharmacy 132.1 ml/min; Est GFR (African American) 110.8 ml/min; Est GFR (Non-African American) 95.6 ml/min; Globulin 3.5 gm/dl (2.5-4.0); Glucose 140 mg/dl (70-99(Fasting)); Magnesium 2.4 mg/dl (1.7-2.4); Sodium 136 mmol/L (136-145); Total Protein 7.3 gm/dl (6.0-8.3)
[2021-08-31 07:31] LABS: Estimated Average Glucose 143 mg/dl; Hemoglobin A1C 6.6 % (4.5-5.6)
[2021-08-31] MEDS: allopurinoL 300 MG TAB PO SCH (07:33)
[2021-08-31] MEDS: THIAMINE HCL 100 MG TAB PO SCH (07:33)
[2021-08-31] MEDS: FOLIC ACID 1 MG TAB PO SCH (07:34)
[2021-08-31] MEDS: ATORVASTATIN 40 MG TAB PO SCH (07:34)
[2021-08-31] MEDS: guaiFENesin 600 MG TABCR PO SCH ×2 (07:34→20:10)
[2021-08-31 07:59] LABS: Potassium 3.9 mmol/L (3.5-5.1)
[2021-08-31] MEDS: INSULIN ASPART PER UNIT SC SCH ×4 (09:41→20:06)
[2021-08-31] MEDS ORDERED: ALBUT/IPRATROP 3MG/0.5MG NEB 3 ML VIAL NEB PRN (15:17)
[2021-08-31] MEDS: levoFLOXacin/D5W 750 MG/150 ML BAG IV SCH (20:10)
[2021-08-31] MEDS: ENOXAPARIN INJ 40 MG/0.4 ML SYR SQ SCH (20:10)
--- NOTE | 2021-08-31 23:00 | Electrocardiogram Report ---
Test Reason : Blood Pressure : / mmHG Vent. Rate : 098 BPM Atrial Rate : 098 BPM P-R Int : 120 ms QRS Dur : 094 ms QT Int : 356 ms P-R-T Axes : 000 023 048 degrees QTc Int : 454 ms Sinus rhythm with Premature atrial complexes Otherwise normal ECG When compared with ECG of 03-AUG-2020 12:24, Premature ventricular complexes are no longer Present Premature atrial complexes are now Present Confirmed by Jefferson Mayorga ([id number]) on 08/31/2021 10:59:44 PM Referred By: Juhi Muñoz Confirmed By:Jefferson Mayorga
--- NOTE | 2021-08-31 23:57 | Hospitalist Progress Note ---
Date of Service August 31, 2021 Assessment & Plan (1) Acute respiratory failure with hypoxia: (2) COPD with acute exacerbation: (3) Parainfluenza virus bronchitis: (4) Bronchiolitis: (5) Hyponatremia: (6) Alcohol abuse: Plan: This is a 61-year-old male who has significant past medical history diet- controlled T2DM, obstructive lung disease, history of COVID, hyperlipidemia, alcohol abuse, rheumatoid arthritis, elevated ferritin requiring therapeutic phlebotomy, lumbar spinal stenosis, AAA who presents to ED after follow-up PCP secondary to cough x5 days and hypoxia. Chest CTA: Bronchial wall thickening suggestive of bronchitis. There are associated tree-in-bud nodules with nodular patchy consolidative opacities throughout the right lung compatible with an infectious or inflammatory pneumonitis/bronchiolitis. Negative for PE. Acute hypoxic respiratory failure COPD exacerbation Acute bronchiolitis secondary to parainfluenza Cont oxygen supplementation, still req 6 LPM Suspect mucous plugging may be playing a component due to excessive mucus production and increasing oxygen requirements IV Solu-Medrol 40 mg 3 times daily IV Levaquin 750 mg daily Aggressive pulmonary toilet with flutter valve, incentive spirometer, chest PT Mucinex twice daily, Tessalon Perles as needed pt does not take any maintenance inhalers due to cost in the past T2DM Last A1c 6.8 on May/2021 Obtain A1c in a.m. BSG 97 No coverage for now, monitor FBS while on steroids Hyponatremia resolved Alcohol abuse drinks 5-6 beers daily admits to "shakes" when he goes w/o awss protocol prn IV ativan daily thiamine, folic acid HLD continue statin Gout continue allopurinol Hx of RA follows Dr. Adan currently not receiving treatment Elevated Ferritin previously followed Dr. Dorsey from [place] therapeutic phlebotomy DVT ppx: SQ Lovenox Dispo: PCU FULL CODE Dispo-to home when oxygen requirement has resolved. Dolores Mcgill DO [facility] Hospitalist Admission and Anticipated Discharge Date Admission Date: August 30, 2021 Subjective 61 yo M presented with respiratory symptoms 2/2 bronchitis/pneumonia 2/2 parainfluenza hypoxic today requiring 6 LPM Heavy drinker known and he is diaphoretic but not confused pacing the room but no overt tremors, etc. at bedside pt denies chest pain feeling better tolerating PO Review of Systems Review of Systems: All systems were reviewed and negative except as indicated on subjective above. Physical Exam Physical Exam: CONSTITUTIONAL: WNWD, vitals as above, generally well- appearing, NAD EYES: normal conjunctivae, no scleral icterus, ENT: external ear and nose normal, NECK: trachea midline, RESPIRATORY: clear to auscultation bilaterally, no crackles, rales or wheezes, normal respiratory effort CARDIOVASCULAR: regular rate and rhythm, S1 and 2 heard without murmurs, gallops or rubs, no JVD, no peripheral edema CHEST: inspection of chest was normal GASTROINTESTINAL: soft, nontender, ND, no guarding MUSCULOSKELETAL: strength 5/5 throughout, head is normocephalic and atraumatic, SKIN: warm and dry, flushed face with rosacea appearance and slightly diaphoretic on face. NEUROLOGIC: CN 2-12 grossly intact, no sensory deficit, normal cognition, normal speech, no tremor PSYCHIATRIC: alert cooperative and oriented to person, place and time. Results & Data Results & Data ([facility]) Vital Signs (Past 12 Hours) Vital Signs Temp Pulse Pulse Pulse Resp BP Pulse Ox 08/31/21 23:04 36.6 C 73 20 149/92 H 93 08/31/21 22:52 78 08/31/21 21:43 08/31/21 19:53 36.9 C 90 19 149/88 H 91 08/31/21 19:17 36.9 C 81 22 168/90 H 93 08/31/21 16:00 08/31/21 14:50 98 H 08/31/21 14:26 91 H 20 92 Pulse Ox 08/31/21 23:04 08/31/21 22:52 08/31/21 21:43 93 08/31/21 19:53 08/31/21 19:17 08/31/21 16:00 92 08/31/21 14:50 08/31/21 14:26 Laboratory Results Short CBC 08/31/21 Range/Units 06:08 WBC 9.66 (4.8-10.8) K/uL Hgb 13.0 L (14.0-18.0) g/dL Hct 40.5 L (42-52) % Plt Count 248 (130-400) K/uL BMP 08/31/21 08/31/21 06:08 07:24 Sodium 136 Potassium TNP 3.9 Chloride 99 Carbon Dioxide 30 BUN 15 Creatinine 0.79 Glucose 140 H Calcium 9.0 Liver Function 08/31/21 08/31/21 Range/Units 06:08 07:24 Total Bilirubin 0.5 (0.2-1.0) mg/dl AST TNP 16 ALT 30 (7-52) U/L Alkaline Phosphatase 100 (34-104) U/L Albumin 3.8 (3.4-5.0) gm/dl Medications Administered Current Inpatient Medications Acetaminophen (Acetaminophen 325 Mg Tab) 650 mg PO Q4H PRN PRN Reason: Pain or Fever Stop: 09/29/21 20:48 Al Hydrox/Mg Hydrox/Simethicone (Aluminum/Magnesium Susp 30 Ml Udc) 15 ml PO Q4H PRN PRN Reason: Dyspepsia Stop: 09/29/21 20:48 Albuterol (Albut/Ipratrop 3mg/0.5mg Neb 3 Ml Vial) 3 ml NEB QID PRN; Protocol PRN Reason: SOB/wheezing Stop: 09/30/21 16:59 Allopurinol (Allopurinol 300 Mg Tab) 450 mg PO DAILY ALFONSO Stop: 09/30/21 08:59 Last Admin: 08/31/21 07:33 Dose: 450 mg Documented by: Atorvastatin Calcium (Atorvastatin 40 Mg Tab) 40 mg PO DAILY ALFONSO Stop: 09/30/21 08:59 Last Admin: 08/31/21 07:34 Dose: 40 mg Documented by: Benzonatate (Benzonatate 100 Mg Capsule) 100 mg PO TID PRN PRN Reason: cough Stop: 09/29/21 20:48 Dextrose (Dextrose 50% 50 Ml Syringe) 25 - 50 ml IV UD PRN; Protocol PRN Reason: Hypoglycemia Protocol Stop: 09/29/21 22:44 Enoxaparin Sodium (Enoxaparin Inj 40 Mg/0.4 Ml Syr) 40 mg SQ HS ALFONSO Stop: 09/29/21 20:59 Last Admin: 08/31/21 20:10 Dose: 40 mg Documented by: Folic Acid (Folic Acid 1 Mg Tab) 1 mg PO QAM ALFONSO Stop: 09/29/21 21:14 Last Admin: 08/31/21 07:34 Dose: 1 mg Documented by: Glucagon (Glucagon For Inj 1 Mg Vial) 1 mg IM UD PRN; Protocol PRN Reason: Hypoglycemia Protocol Stop: 09/29/21 22:44 Glucose (Glucose 40% Gel 15 Gm Tube) 15 - 30 gm PO UD PRN; Protocol PRN Reason: Hypoglycemia Protocol Stop: 09/29/21 22:44 Glucose (Glucose 10 Tabs/Tube) 4 - 8 tabs PO UD PRN; Protocol PRN Reason: Hypoglycemia Protocol Stop: 09/29/21 22:44 Guaifenesin (Guaifenesin 600 Mg Tabcr) 600 mg PO Q12 ALFONSO Stop: 09/29/21 21:14 Last Admin: 08/31/21 20:10 Dose: 600 mg Documented by: Levofloxacin/Dextrose (Levaquin/D5w) 750 mg in 150 mls @ 100 mls/hr IV HS ALFONSO; Protocol Stop: 09/06/21 21:29 Last Infusion: 08/31/21 21:40 Dose: Infused Documented by: Methylprednisolone 40 mg/ (Syringe) 0.64 mls @ 1.5 mls/min IV Q8 ALFONSO Stop: 09/30/21 05:59 Last Admin: 08/31/21 21:45 Dose: 1.5 mls/min Documented by: Insulin Aspart (Insulin Aspart Per Unit) 0 units SC ACHS ALFONSO Stop: 09/30/21 07:29 Last Admin: 08/31/21 20:06 Dose: 1 units Documented by: Lorazepam (Lorazepam 2 Mg/1 Ml Vial) 1 mg IV UD PRN; Protocol PRN Reason: EtOH Withdrawl AWSS Score 6,7 Stop: 09/29/21 20:48 Lorazepam (Lorazepam 2 Mg/1 Ml Vial) 2 mg IV UD PRN; Protocol PRN Reason: EtOH Withdrawl AWSS Score 8,9 Stop: 09/29/21 20:48 Magnesium Hydroxide (Magnesium Hydroxide Susp 30 Ml Udc) 30 ml PO Q12H PRN PRN Reason: Constipation Stop: 09/29/21 20:48 Miscellaneous (Carbohydrates For Hypoglycemia ) 15 - 30 gm PO UD PRN PRN Reason: Hypoglycemia Treatment Stop: 09/29/21 22:44 Ondansetron HCl (Ondansetron Inj 2 Mg/Ml 2 Ml Vial) 4 mg IV Q6H PRN PRN Reason: Nausea Stop: 09/29/21 20:48 Polyethylene Glycol (Polyethylene (Miralax) 17 Gm Pack) 17 gm PO DAILY PRN PRN Reason: Constipation Stop: 09/29/21 20:48 Thiamine HCl (Thiamine Hcl 100 Mg Tab) 100 mg PO QAM [facility] Stop: 09/29/21 21:14 Last Admin: 08/31/21 07:33 Dose: 100 mg Documented by:
[2021-09-01] MEDS: methylPREDNISolone 40 MG in SYRINGE 0 ML IV SCH ×2 (05:26→13:06)
[2021-09-01 06:30] LABS: Hematocrit (blood only) 39.9 % (42-52); Hemoglobin 12.9 g/dL (14.0-18.0); Mean Corpuscular Hemoglobin 30.4 pg (25-34); Mean Corpuscular Hgb Conc 32.3 g/dL (32-36); Mean Corpuscular Volume 93.9 fL (80-100); Mean Platelet Volume 10.1 fL (7.4-10.4); Platelet Count 237 K/uL (130-400); RDW Coefficient of Variation 14.2 % (11.5-14.5); RDW Standard Deviation 48.8 fL (36.4-46.3); Red Blood Count 4.25 M/uL (4.7-6.1); White Blood Count 11.16 K/uL (4.8-10.8)
[2021-09-01 06:40] LABS: Anion Gap 6 (3-11); BUN Creatinine Ratio 20.7 (10-20); Blood Urea Nitrogen 17 mg/dl (6-23); Calcium 9.1 mg/dl (8.5-10.1); Carbon Dioxide 29 mmol/L (21-32); Chloride 100 mmol/L (98-107); Creatinine Clr Calc Pharmacy 122.9 ml/min; Est GFR (African American) 109.1 ml/min; Est GFR (Non-African American) 94.1 ml/min; Glucose 197 mg/dl (70-99(Fasting)); Sodium 135 mmol/L (136-145)
[2021-09-01] MEDS: allopurinoL 300 MG TAB PO SCH (07:32)
[2021-09-01] MEDS: ATORVASTATIN 40 MG TAB PO SCH (07:32)
[2021-09-01] MEDS: FOLIC ACID 1 MG TAB PO SCH (07:32)
[2021-09-01] MEDS: guaiFENesin 600 MG TABCR PO SCH ×2 (07:32→21:02)
[2021-09-01] MEDS: THIAMINE HCL 100 MG TAB PO SCH (07:33)
[2021-09-01] MEDS: INSULIN ASPART PER UNIT SC SCH ×4 (07:43→21:05)
--- NOTE | 2021-09-01 16:01 | Hospitalist Progress Note ---
Date of Service September 01, 2021 Assessment & Plan (1) Acute respiratory failure with hypoxia: (2) COPD with acute exacerbation: (3) Parainfluenza virus bronchitis: (4) Bronchiolitis: (5) Hyponatremia: (6) Alcohol abuse: Plan: This is a 61-year-old male who has significant past medical history diet- controlled T2DM, obstructive lung disease, history of COVID, hyperlipidemia, alcohol abuse, rheumatoid arthritis, elevated ferritin requiring therapeutic phlebotomy, lumbar spinal stenosis, AAA who presents to ED after follow-up PCP secondary to cough x5 days and hypoxia. Chest CTA: Bronchial wall thickening suggestive of bronchitis. There are associa kendra tree-in-bud nodules with nodular patchy consolidative opacities throughout the right lung compatible with an infectious or inflammatory pneumonitis/bronchiolitis. Negative for PE. Acute hypoxic respiratory failure COPD exacerbation Acute bronchiolitis secondary to parainfluenza Admit to PCU Continue oxygen supplementation, during my eval in ER patient was requiring 6 L on OxiMax Suspect mucous plugging may be playing a component due to excessive mucus production and increasing oxygen requirements IV Solu-Medrol 40 mg 3 times daily-->change to prednisone in am as he is improved Cont Levaquin 750 mg daily Aggressive pulmonary toilet with flutter valve, incentive spirometer, chest PT Mucinex twice daily, Tessalon Perles as needed pt does not take any maintenance inhalers due to cost in the past T2DM Last A1c 6.8 on May/2021 Obtain A1c in a.m. BSG 97 No coverage for now, monitor FBS while on steroids Hyponatremia suspect alcohol playing component-resolved Alcohol abuse drinks 5-6 beers daily admits to "shakes" when he goes w/o awss protocol prn IV ativan daily thiamine, folic acid clinically no evidence of withdrawal at this time HLD continue statin Gout continue allopurinol Hx of RA follows Dr. Adan currently not receiving treatment DVT ppx: SQ Lovenox Dispo: PCU FULL CODE Dispo-to home when improved and hypoxia has resolved DO Víctor Carver Hospitalist Admission and Anticipated Discharge Date Admission Date: August 30, 2021 Subjective 61 yo M presented with respiratory symptoms 2/2 bronchitis/pneumonia 2/2 parainfluenza oxygen needs are improving some undesirable side effects from steroids also had little sleep with nocturia which is an issue for him at home, also. denies cough, fevers, chills, and breathing is improved very eager to go home. Review of Systems Review of Systems: All systems were reviewed and negative except as indicated on subjective above. Physical Exam Physical Exam: CONSTITUTIONAL: WNWD, vitals as above, generally well- appearing, NAD EYES: normal conjunctivae, no scleral icterus, ENT: external ear and nose normal, NECK: trachea midline, RESPIRATORY: clear to auscultation bilaterally, no crackles, rales or wheezes, normal respiratory effort CARDIOVASCULAR: regular rate and rhythm, S1 and 2 heard without murmurs, gallops or rubs, no JVD, no peripheral edema CHEST: inspection of chest was normal GASTROINTESTINAL: soft, nontender, ND, no guarding MUSCULOSKELETAL: strength 5/5 throughout, head is normocephalic and atraumatic, SKIN: warm and dry, flushed face with rosacea appearance and slightly diaphoretic on face. NEUROLOGIC: CN 2-12 grossly intact, no sensory deficit, normal cognition, normal speech, no tremor PSYCHIATRIC: alert cooperative and oriented to person, place and time. Results & Data Results & Data ([facility]) Vital Signs (Past 12 Hours) Vital Signs Temp Pulse Pulse Pulse Resp BP Pulse Ox 09/01/21 15:52 36.8 C 72 20 L 92 H 169/97 H 92 09/01/21 14:50 81 09/01/21 11:36 36.6 C 71 18 145/95 H 92 09/01/21 07:00 81 Laboratory Results Short CBC 09/01/21 Range/Units 05:49 WBC 11.16 H (4.8-10.8) K/uL Hgb 12.9 L (14.0-18.0) g/dL Hct 39.9 L (42-52) % Plt Count 237 (130-400) K/uL BMP 09/01/21 09/01/21 05:49 06:46 Sodium 135 L Potassium TNP 4.2 Chloride 100 Carbon Dioxide 29 BUN 17 Creatinine 0.82 Glucose 197 H Calcium 9.1 Medications Administered Current Inpatient Medications Acetaminophen (Acetaminophen 325 Mg Tab) 650 mg PO Q4H PRN PRN Reason: Pain or Fever Stop: 09/29/21 20:48 Al Hydrox/Mg Hydrox/Simethicone (Aluminum/Magnesium Susp 30 Ml Udc) 15 ml PO Q4H PRN PRN Reason: Dyspepsia Stop: 09/29/21 20:48 Albuterol (Albut/Ipratrop 3mg/0.5mg Neb 3 Ml Vial) 3 ml NEB QID PRN; Protocol PRN Reason: SOB/wheezing Stop: 09/30/21 16:59 Allopurinol (Allopurinol 300 Mg Tab) 450 mg PO DAILY ALFONSO Stop: 09/30/21 08:59 Last Admin: 09/01/21 07:32 Dose: 450 mg Documented by: Atorvastatin Calcium (Atorvastatin 40 Mg Tab) 40 mg PO DAILY ALFONSO Stop: 09/30/21 08:59 Last Admin: 09/01/21 07:32 Dose: 40 mg Documented by: Benzonatate (Benzonatate 100 Mg Capsule) 100 mg PO TID PRN PRN Reason: cough Stop: 09/29/21 20:48 Dextrose (Dextrose 50% 50 Ml Syringe) 25 - 50 ml IV UD PRN; Protocol PRN Reason: Hypoglycemia Protocol Stop: 09/29/21 22:44 Enoxaparin Sodium (Enoxaparin Inj 40 Mg/0.4 Ml Syr) 40 mg SQ HS ALFONSO Stop: 09/29/21 20:59 Last Admin: 08/31/21 20:10 Dose: 40 mg Documented by: Folic Acid (Folic Acid 1 Mg Tab) 1 mg PO QAM ALFONSO Stop: 09/29/21 21:14 Last Admin: 09/01/21 07:32 Dose: 1 mg Documented by: Glucagon (Glucagon For Inj 1 Mg Vial) 1 mg IM UD PRN; Protocol PRN Reason: Hypoglycemia Protocol Stop: 09/29/21 22:44 Glucose (Glucose 40% Gel 15 Gm Tube) 15 - 30 gm PO UD PRN; Protocol PRN Reason: Hypoglycemia Protocol Stop: 09/29/21 22:44 Glucose (Glucose 10 Tabs/Tube) 4 - 8 tabs PO UD PRN; Protocol PRN Reason: Hypoglycemia Protocol Stop: 09/29/21 22:44 Guaifenesin (Guaifenesin 600 Mg Tabcr) 600 mg PO Q12 ALFONSO Stop: 09/29/21 21:14 Last Admin: 09/01/21 07:32 Dose: 600 mg Documented by: Levofloxacin/Dextrose (Levaquin/D5w) 750 mg in 150 mls @ 100 mls/hr IV HS ALFONSO; Protocol Stop: 09/06/21 21:29 Last Infusion: 08/31/21 21:40 Dose: Infused Documented by: Methylprednisolone 40 mg/ (Syringe) 0.64 mls @ 1.5 mls/min IV Q8 [facility] Stop: 09/30/21 05:59 Last Admin: 09/01/21 13:06 Dose: 1.5 mls/min Documented by: Insulin Aspart (Insulin Aspart Per Unit) 0 units SC ACHS [facility] Stop: 09/30/21 07:29 Last Admin: 09/01/21 11:40 Dose: Not Given Documented by: Lorazepam (Lorazepam 2 Mg/1 Ml Vial) 1 mg IV UD PRN; Protocol PRN Reason: EtOH Withdrawl AWSS Score 6,7 Stop: 09/29/21 20:48 Lorazepam (Lorazepam 2 Mg/1 Ml Vial) 2 mg IV UD PRN; Protocol PRN Reason: EtOH Withdrawl AWSS Score 8,9 Stop: 09/29/21 20:48 Magnesium Hydroxide (Magnesium Hydroxide Susp 30 Ml Udc) 30 ml PO Q12H PRN PRN Reason: Constipation Stop: 09/29/21 20:48 Miscellaneous (Carbohydrates For Hypoglycemia ) 15 - 30 gm PO UD PRN PRN Reason: Hypoglycemia Treatment Stop: 09/29/21 22:44 Ondansetron HCl (Ondansetron Inj 2 Mg/Ml 2 Ml Vial) 4 mg IV Q6H PRN PRN Reason: Nausea Stop: 09/29/21 20:48 Polyethylene Glycol (Polyethylene (Miralax) 17 Gm Pack) 17 gm PO DAILY PRN PRN Reason: Constipation Stop: 09/29/21 20:48 Thiamine HCl (Thiamine Hcl 100 Mg Tab) 100 mg PO QAM [facility] Stop: 09/29/21 21:14 Last Admin: 09/01/21 07:33 Dose: 100 mg Documented by:
[2021-09-01] MEDS: ENOXAPARIN INJ 40 MG/0.4 ML SYR SQ SCH (21:02)
[2021-09-01] MEDS: levoFLOXacin/D5W 750 MG/150 ML BAG IV SCH (21:02)
[2021-09-02] MEDS: INSULIN ASPART PER UNIT SC SCH ×2 (07:35→11:44)
[2021-09-02] MEDS: allopurinoL 300 MG TAB PO SCH (08:30)
[2021-09-02] MEDS: THIAMINE HCL 100 MG TAB PO SCH (08:31)
[2021-09-02] MEDS: FOLIC ACID 1 MG TAB PO SCH (08:31)
[2021-09-02] MEDS: ATORVASTATIN 40 MG TAB PO SCH (08:31)
[2021-09-02] MEDS: guaiFENesin 600 MG TABCR PO SCH (08:31)
[2021-09-02] MEDS ORDERED: predniSONE 20 MG TAB PO SCH (09:00)
--- NOTE | 2021-09-02 12:40 | Hospitalist Progress Note ---
Date of Service September 02, 2021 Assessment & Plan (1) Acute respiratory failure with hypoxia: (2) COPD with acute exacerbation: (3) Parainfluenza virus bronchitis: (4) Bronchiolitis: (5) Hyponatremia: (6) Alcohol abuse: Plan: Patient is a 61 yr male with H/O DM II, obstructive lung disease, history of COVID, hyperlipidemia, alcohol abuse, rheumatoid arthritis, elevated ferritin requiring therapeutic phlebotomy, lumbar spinal stenosis, AAA who presents to ED after follow-up PCP secondary to cough x5 days and hypoxia. Acute hypoxic respiratory failure Acute COPD exacerbation Acute bronchiolitis secondary to parainfluenza --CTA:1. Cardiomegaly without pulmonary emboli identified. Bronchial wall thickening suggestive of bronchitis. There are associated tree-in-bud nodules with nodular patchy consolidative opacities throughout the right lung compatible with an infectious or inflammatory pneumonitis/bronchiolitis. Mild mediastinal adenopathy, likely reactive. Hepatic steatosis. -- Supplemental oxygen requirements much improved 2 step: Needs 1 L supplemental oxygen to maintain saturation IV Solu-Medrol transition to prednisone Continue Levaquin Continue pulmonary hygiene Advised to follow-up with his police patrol officer upon discharge Currently not on any maintenance inhalers, patient prefers not to be started given lack of insurance DM II HbA1C: 6.6 Monitor BGs On Insulin Advise to follow up with PCP as outpatient Not on any medications at home currently Patient prefers to follow-up with PCP for further management Hyponatremia Likely due to alcohol Sodium 132>>135 Monitor Alcohol abuse drinks 5-6 beers daily Continue thiamine, folic acid No signs of withdrawal currently Counseled to quit drinking HLD continue statin Gout continue allopurinol Hx of RA Follows with Dr. Adan Stable DVT Px: SQ Lovenox Code Status FULL CODE Admission and Anticipated Discharge Date Admission Date: August 30, 2021 Subjective Patient is seen and examined at bedside States having only minimal cough Denies any chest pain, dyspnea, dizziness, nausea, abdominal pain Eager to get discharged Had 2 step earlier today Review of Systems Review of Systems: All systems reviewed & are unremarkable except as noted in Subjective Physical Exam Physical Exam: Physical Exam: Vitals signs as noted above General Appearance:Obese, no apparent distress Head: normocephalic, Atraumatic Eyes: normal inspection, EOMI Neck: supple, Trachea midline Respiratory/Chest: Decreased breath sounds, CTA, No accessory muscle use Cardiovascular: S1, S2, No murmur Abdomen/GI:Soft, Non tender, Bowel sounds present Extremities/Musculoskeletal:normal inspection, Trace edema Neurologic/Psych:AAOX3, grossly no focal neurological deficits Skin: normal color, warm Results & Data Results & Data ([facility]) Vital Signs (Past 12 Hours) Vital Signs Temp Pulse Pulse Pulse Pulse Pulse Pulse 09/02/21 11:09 36.7 C 79 09/02/21 10:16 120 H 118 H 105 H 98 H 09/02/21 08:00 09/02/21 07:18 36.4 C L 91 H 09/02/21 07:00 79 09/02/21 03:00 36.7 C 94 H Resp Resp Resp Resp Resp BP Pulse Ox 09/02/21 11:09 20 118/81 91 09/02/21 10:16 20 24 20 18 09/02/21 08:00 09/02/21 07:18 22 111/89 91 09/02/21 07:00 09/02/21 03:00 20 142/90 H 95 Pulse Ox Pulse Ox Pulse Ox Pulse Ox Pulse Ox 09/02/21 11:09 09/02/21 10:16 90 86 L 94 91 09/02/21 08:00 91 09/02/21 07:18 09/02/21 07:00 09/02/21 03:00
--- NOTE | 2021-09-02 12:58 | Discharge Summary ---
Date of Service September 02, 2021 Admission HPI Per Admitting Provider This is a 61-year-old male who has significant past medical history diet- controlled T2DM, obstructive lung disease, history of COVID, hyperlipidemia, alcohol abuse, rheumatoid arthritis, elevated ferritin requiring therapeutic phlebotomy, lumbar spinal stenosis, AAA who presents to ED after follow-up PCP secondary to cough x5 days and hypoxia. Symptoms started approximately 5 days ago. He complains of a copious amount brumfield sputum. He further complains of wheezing and dyspnea on exertion. He also complains of occasional lightheadedness. Today we checked his oxygen it was in the low 80s on room air. He has positive sick contact with his . She also has similar symptoms. He has prior past medical history of tobacco abuse. He smoked for roughly 40 years at half a pack a day. He has not smoked for many years. He does have history of COPD, but has not required hospitalization for this. He will require hospitalization for COVID-pneumonia. He denies any documented fever, chills, sweats, dizziness, syncope, chest pain, palpitations, hemoptysis, sinus congestion, sore throat, nausea, vomiting, abdominal pain, change in bowel or urinary habits. His appetite has been stable. He has not tried anything [id number] at home. He did see his PCP today who recommended ER evaluation due to hypoxia. Admission Exam Per Admitting Provider Physical Exam Physical Exam: Constitutional: WD/WN, vitals as above, NAD, sitting up at bedside, pleasant, conversing easily Head: Normocephalic, Atraumatic Eyes: PERRL, conjunctivae normal, anicteric sclerae ENMT: external ear and nose normal, oropharynx normal Neck: trachea midline, no thyromegaly normal visual inspection Respiratory: Oxymask in place 6L, 91%, normal respiratory effort, lungs clear to auscultation with decreased BS RLL, faint exp wheeze, no rales/rhonchi. Normal insp/exp effort, no accessory muscle use Cardiovascular: RRR, no murmur, no edema Vessels: no JVD or carotid bruit Chest: normal inspection of chest Abdomen: protuberant, obese, abd, normal bowel sounds, soft, nontender, no hepatosplenomegaly Musculoskeletal: no cyanosis or clubbing, extremities motor strength 5/5 Skin: no rashes, warm and dry normal turgor Neurologic: PERRL, EOMI, accommodation nl, no face palsy, no dysarthria CN's II-XI intact bilaterally and moves all extremities Psychiatric: A+Ox3, euthymic affect Lymphatic: no cervical or axillary lymphadenopathy : deferred Principal Diagnosis Acute hypoxic respiratory failure Acute COPD exacerbation Acute bronchiolitis secondary to parainfluenza Hyponatremia Alcohol use disorder Discharge Data Allergies Allergy/AdvReac Type Severity Reaction Status Date / Time No Known Allergies Allergy Verified 08/30/21 14:22 Consultations 08/30/21 16:10 ED Decision to Admit Stat Ordered Studies 08/30/21 14:37 CT angio chest PE protocol Stat Hospital Course (1) Acute respiratory failure with hypoxia: (2) COPD with acute exacerbation: (3) Parainfluenza virus bronchitis: (4) Bronchiolitis: (5) Hyponatremia: (6) Alcohol abuse: Patient is a 61 yr male with H/O DM II, obstructive lung disease, history of COVID, hyperlipidemia, alcohol abuse, rheumatoid arthritis, elevated ferritin requiring therapeutic phlebotomy, lumbar spinal stenosis, AAA who presents to ED after follow-up PCP secondary to cough x5 days and hypoxia. Acute hypoxic respiratory failure Acute COPD exacerbation Acute bronchiolitis secondary to parainfluenza --CTA:1. Cardiomegaly without pulmonary emboli identified. Bronchial wall thickening suggestive of bronchitis. There are associated tree-in-bud nodules with nodular patchy consolidative opacities throughout the right lung compatible with an infectious or inflammatory pneumonitis/bronchiolitis. Mild mediastinal adenopathy, likely reactive. Hepatic steatosis. -- Supplemental oxygen requirements much improved 2 step: Needs 1 L supplemental oxygen to maintain saturation IV Solu-Medrol transition to prednisone Continue Levaquin Continue pulmonary hygiene Advised to follow-up with his plant operator control room operator upon discharge Currently not on any maintenance inhalers, patient prefers not to be started given lack of insurance DM II HbA1C: 6.6 Monitor BGs On Insulin Advise to follow up with PCP as outpatient Not on any medications at home currently Patient prefers to follow-up with PCP for further management Hyponatremia Likely due to alcohol Sodium 132>>135 Monitor Alcohol abuse drinks 5-6 beers daily Continue thiamine, folic acid No signs of withdrawal currently Counseled to quit drinking HLD continue statin Gout continue allopurinol Hx of RA Follows with Dr. Adan Stable DVT Px: SQ Lovenox Code Status FULL CODE Total Time Total Time Spent Total Time Spent (In Minutes): 45 minutes Discharge Plan Discharge Items Patient Disposition: Home - Self-Care Reason For Visit: HYPOXIA, BRONCHITIS, PARAINFLUENZA Discharge Diagnosis: Acute hypoxic respiratory failure Acute COPD exacerbation Acute bronchiolitis secondary to parainfluenza Hyponatremia Alcohol use disorder Activity: Per Instructions section Exercise/Sports: Wait until after follow-up appointment Non-emergency contact: Primary Care Provider and Cold Rolling Supervisor Call non-emergency contact if: you have any medication questions, your symptoms worsen, your pain is concerning for you and you have a fever Follow-up/Referrals: Christa Edmond, [Primary Care Provider] - Diet: Carb Consistent or DM2 and Heart Healthy Addtl Attending Provider Instructions: Follow-up with your primary care physician Dr. Edmond in 1 week as advised Follow-up with your plant operator control room operator as needed -- Complete the antibiotic, prednisone taper course as prescribed Prednisone taper course: Start taking prednisone 30 mg daily for 2 days, then 20 mg daily for 2 days then 10 mg daily for 2 days and stop. ----Discussed with your physician for further management of diabetes mellitus as advised. --- Use oxygen 1 L via nasal cannula with activity as advised. Seek immediate medical attention if your symptoms reoccur or worsen Please take all medications as instructed on discharge list below. Please call if you have any questions or problems. You can reach a [facility] hospitalist on duty at [facility] 24 hours a day by calling [phone] Pending Studies at Discharge: No Stand-Alone Forms: My [facility], Smoking Cessation Medications and DC Order Prescriptions: New thiamine HCl (vitamin B1) 100 mg Tablet 100 mg PO QAM Qty: 30 RF: 0 folic acid 1 mg Tablet 1 mg PO QAM Qty: 30 RF: 0 guaifenesin [Mucinex] 600 mg Tablet Extended Release 12hr 600 mg PO Q12 Qty: 10 RF: 0 levofloxacin 750 mg tablet 750 mg PO DAILY 3 Days Qty: 3 RF: 0 albuterol sulfate 90 mcg/actuation HFA aerosol inhaler 2 inh inhalation Q8H PRN (Reason: shortness of breath or wheezing) Qty: 8.5 RF: 0 Continued atorvastatin 40 mg tablet 40 mg PO DAILY RF: 0 allopurinol 300 mg tablet 450 mg PO DAILY RF: 0 Changed prednisone 10 mg tablet 10 mg PO UD Qty: 12 RF: 0 Discharge Orders: Discharge Order (Routine); Ordered 09/02/21 Ordered By: Parth Segovia/Other Patient Handouts: Managing Type 2 Diabetes, Diabetes: Meal Planning Admission Data Admit Date/Time: 08/30/21 16:32 Attending Provider: Parth Rausch Admit Provider: Quincy Martinez Primary Care Provider: Christa Edmond Other Providers: Otis Christina
== END 2021-09-02 14:17 | disposition home or self-care (01) | DRG 202 ==
LOC: ED 13:22 → SUATTDRO 16:32 → 2E 16:32